=== PATIENT | male | born 1940 | race Caucasian/White ===

== ENCOUNTER 2020-06-07 07:11 | Day surgery (SDC) | payer OTHER ==
--- NOTE | 2020-06-05 10:07 | RAD REPORT ---
EXAM DESCRIPTION: RAD - Chest Pa And Lat (2 Views) - 06/05/2020 9:51 am CLINICAL HISTORY: preop, pending umbilical hernia repair COMPARISON: CT imaging December 2016 TECHNIQUE: Frontal and lateral views of the chest were obtained. FINDINGS: The lungs are clear of an acute process. Interstitial pattern overall has not changed. Pat ient has pleural and parenchymal scarring changes in the right base that are not clearly different fr om the 2017 CT study. Heart size is normal and central vasculature is within normal limits. No pleural effusion or pneu mothorax seen. No acute bony finding noted. No aortic abnormality. 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 No acute chest finding.
[2020-06-05 10:09] LABS: Absolute Lymphocytes (CBC) 2.1 K/uL (0.7-4.9); Basophils % 0.9 % (0-1.3); Hematocrit 38.7 % (39.6-49.0); Lymphocytes % 23.9 % (15.3-44.8); MPV 9.4 fL (7.6-11.3); RBC Red Blood Cell Count 6.52 M/uL (4.33-5.43)
[2020-06-05 10:18] LABS: Potassium 3.7 mmol/L (3.5-5.1)
[2020-06-05 11:06] LABS: White Blood Cell Scan OK (OK)
[2020-06-05 11:07] LABS: Anisocytosis 2+; Blood Morphology Comment NOTED (NOT SEEN); Hypochromasia 2+; Platelet Estimate ADEQ; Poikilocytosis SLIGHT
[2020-06-07] MEDS ORDERED: Ringers Lactate 1,000 ML IV ONE (07:48)
[2020-06-07] MEDS ORDERED: ONDANSETRON 4 MG/2 ML VIAL ONE ×2 (08:34→09:12)
[2020-06-07] MEDS ORDERED: FENTANYL CITR 100 MCG/2 ML ONE (08:34)
[2020-06-07] MEDS ORDERED: LIDOCAINE 2% MPF 5 ML VIAL ONE (08:35)
[2020-06-07] MEDS ORDERED: propofoL 200 MG/20 ML VIAL IV ONE (08:35)
[2020-06-07] MEDS: CEFAZOLIN/SWI 1gm 1 GM/10 ML SYR ONE ×2 (08:53→09:01)
[2020-06-07] MEDS ORDERED: KETOROLAC 30 MG/ML INJ ONE (09:11)
[2020-06-07] MEDS ORDERED: dexAMETHasone 10 MG/ML VIAL ONE (09:11)
--- NOTE | 2020-06-07 09:32 | P.BOP ---
Preoperative diagnosis: tender reducible umbilical hernia Postoperative diagnosis: same Primary procedure: Open repair of tender reducible umbilical hernia Estimated blood loss: <10cc Specimen: none Findings: as above Anesthesia: General Complications: None Transferred to: Recovery Room Condition: Good
[2020-06-07 10:08] VITALS: O2SAT 95
[2020-06-07 12:38] VITALS: BP 125/65; TEMP 97
--- NOTE | 2020-06-12 12:01 | OP ---
Date of Procedure: 06/07/2020 Surgeon: Jean Black MD Preoperative Diagnosis: Tender reducible umbilical hernia. Postoperative Diagnosis: Tender reducible umbilical hernia. Procedure: Open repair of tender reducible umbilical hernia. Estimated Blood Loss: Less than 10 mL. Specimen: None. Anesthesia: General plus local. Indications: This is a case of a patient who comes to us with above. Benefits, alternatives, and ri sks of repair of umbilical hernia were fully explained, which include, but not limited to infection, bleeding, damage to adjacent structures, anesthesia complication, recurrence, [place], and even . Th ey also understand this may not relieve any symptoms, he may need one than one surgical intervention, they understood and signed a consent. Procedure In Detail: The patient was brought to the operating room and placed in supine position. A nesthesia was done without complication. Abdominal area was prepped and draped in usual sterile fash ion. A time-out was called. After that, local anesthesia was applied, followed by a curvilinear inc ision in the periumbilical region. Incision was carried down to subcutaneous tissue. We noticed the hernia sac, it was removed from the umbilical skin. Hernia sac was then opened and noticed to have viable reducible omentum. It was reduced after inspection. Hernia sac was removed. Then, the area was closed with a combination of #1 Vicryl and #1 Prolene. Area was closed with 3-0 chromic in the s ubcutaneous tissue and the skin in a subcuticular fashion. Sponge counts and instrument counts were correct. The patient tolerated the procedure well. The patient was sent to Recovery in stable condit ion. Disposition: Home. Activity: As tolerated, no heavy lifting. Plan: Follow up in my office in 1 week. Call for an appointment at [phone]. Keep area dry for 48 hours, then may shower. Keep Steri-Strip intact. Medications: See orders. HM/MODL Voice ID: [id number] Report ID: [id number]
== END 2020-06-07 11:32 | disposition home or self-care (01) ==
LOC: OR 07:11
PROVIDERS: ATTEND Surgery
PROC: 0WQF0ZZ Repair Abdominal Wall, Open Approach (ICD-10-PCS; principal; 2020-06-07 09:30)
DX: K42.9 Umbilical hernia without obstruction or gangrene (principal); I10 Essential (primary) hypertension; K21.9 Gastro-esophageal reflux disease without esophagitis; G20 Parkinson's disease; Z20.822 Contact with and (suspected) exposure to COVID-19
CPT/HCPCS: 85025; 80048; 36415; 88302; 71046; 49585; U0003; J2704; J3010; J1100; J0690; J7120; J2405 ×2

== ENCOUNTER 2020-08-08 16:01 | Emergency (ER) | payer OTHER ==
--- OUTSIDE RECORDS SUMMARY | 2020-08-08 16:04 | XMS REPORT | Continuity of Care Document ---
:1940 Author Organization [facility] t Address [address] [place] [address] Care Team Providers Name Role Phone Josselin Harding PA-C Primary Care Physician Josselin Gonzalez Attending Clinician [phone] AHMED Attending Clinician Unavailable Problems Condition Condition Condition Status Onset Resolution Last Treating Co mments Source Name Details Category Date Date Treatment Clinician Date History of History of Problem Resolve [facility] allergic allergic d ity of rhinitis rhinitis [place] [facility] ans History of History of Problem Resolve Univers gastroesop gastroesop d it y of hageal hageal [place] reflux reflux Physici (GERD) (GERD) ans History of History of Problem Resolve Univers hypertensi hypertensi d it y of on on [place] [facility] History of History of Problem Resolve [facility] thyroid thyroid d ity of disorder disorder [place] [facility] 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 ity of [place] [facility] Pleural Pleural Problem Active Univers effusion effusion ity of [place] [facility] Thyroid Thyroid Problem Active Univers disorder disorder ity of [place] [facility] HTN HTN Problem Active Univers (hypertens (hypertens it y of ion) ion) [place] [facility] 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 ity of with with [place] 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 without without organ or organ or systems systems involvemen involvemen t t High risk High risk Problem Active Uni vers medication medication it y of use use [place] [facility] 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 ity of [place] [facility] ans Allergies, Adverse Reactions, Alerts Allergy Allergy Status Severity Reaction(s) Onset Inactive Treating Comm ents Source Name Type Date Date Clinician Lisinopr Allergy Active Univers il TABS to drug ity of (finding [place] ) Physici ans Enbrel Allergy Active Rash Univers to drug ity of (finding [place] ) Physici ans Family History Family Member Diagnosis Comments Start Date Stop Date Source Unknown Family Family history of Family History University of Member malignant [place] [facility] ns neoplasm Social History Social Habit Start Date Stop Date Quantity Comments Source Sex Ass[birth year] At [birth year] Nikita Chin ethodist 00:00:00 00:00:00 Medications Ordered Filled Start Stop Current Ordering Indication Dosage Frequency Signature Comments Components Source Medication Medication Date Date Medication? Clinician (SIG) Name Name predniSONE predniSONE Yes FAYYAZ 4 QD TAKE 1 Univers 1 MG Oral 1 MG Oral 2-13 AHMED M.D. TABLET BY ity of Tablet Tablet 00:00: MOUTH [place] 00 EVERY DAY Physici ans Hydroxychlo Hydroxychlo Yes FAYYAZ 1.5 QD TAKE 1.5 Univers roquine roquine 2-13 AHMED M.D. TABLET i ty of Sulfate 200 Sulfate 200 00:00: DAILY [place] MG Oral MG Oral 00 Physici Tablet Tablet ans Humira Pen Humira Pen Yes Uni vers 40 MG/0.8ML 40 MG/0.8ML i ty of Subcutaneou Subcutaneou [place] Physici Pen-injecto Pen-injecto a ns r Kit r Kit Hydroxychlo Hydroxychlo Yes U nivers roquine roquine ity of Sulfate 200 Sulfate 200 [place] MG Oral MG Oral Physici Tablet Tablet ans Aspirin 81 Aspirin 81 Yes Uni vers MG TABS MG TABS ity of [place] Physici ans amLODIPine amLODIPine Yes Uni vers Besylate Besylate ity of TABS TABS [place] [facility] ans Levothyroxi Levothyroxi Yes U nivers ne Sodium ne Sodium ity o f 150 MCG 150 MCG [place] Oral Tablet Oral Tablet P hysici ans Pantoprazol Pantoprazol Yes U nivers e Sodium 40 e Sodium 40 i ty of MG Oral MG Oral [place] Tablet Tablet Physici Delayed Delayed ans Release Release Albuterol Albuterol Yes Unive rs AERS AERS ity of [place] Physici ans ZyrTEC ZyrTEC Yes Univers Allergy Allergy ity of CAPS CAPS [place] [facility] ans Vitamin D3 Vitamin D3 Yes Uni vers TABS TABS ity of [place] [facility] ans Carbidopa-L Carbidopa-L Yes U nivers evodopa evodopa ity of 25-100 MG 25-100 MG [place] Oral Tablet Oral Tablet P hysici ans Vital Signs Vital Name Observation Time Observation Value Comments Source Heart Rate 2018-12-18 86 /min [facility] 10:51:00 [place] Physician s BP Systolic 2018-12-18 151 mm[Hg] [facility] 10:51:00 [place] [facility]ician s BP Diastolic 2018-12-18 80 mm[Hg] [facility] 10:51:00 [place] Physician s Height 2018-12-18 73 [in_us] [facility] 10:51:00 [place] [facility]ician s Weight 2018-12-18 250 [lb_av] [facility] 10:51:00 [place] Physician s Body Mass Index 2018-12-18 32.98 kg/m2 [place] [facility] Calculated 10:51:00 [place] Physician s BP Systolic 2018-08-19 122 mm[Hg] Location: [facility] 10:31:00 Position: [place] [facility]ician s Sitting BP Diastolic 2018-08-19 67 mm[Hg] Location: [facility] 10:31:00 Position: [place] [facility]ician s Sitting Heart Rate 2018-08-19 103 /min [facility] 10:31:00 [place] Physician s BP Systolic 2018-01-21 107 mm[Hg] Location: [facility] 09:38:00 Position: [place] Physician s Sitting BP Diastolic 2018-01-21 55 mm[Hg] Location: [facility] 09:38:00 Position: [place] Physician s Sitting Weight 2018-01-21 250 [lb_av] [facility] 09:38:00 [place] [facility]ician s Height 2018-01-21 73 [in_us] [facility] 09:38:00 [place] [facility]ician s Body Mass Index 2018-01-21 32.98 kg/m2 University o f Calculated 09:38:00 [place] [facility] s Heart Rate 2018-01-21 68 /min [facility] 09:38:00 [place] Physician s Procedures Procedure Date / Time Performed Performing Clinician Sourc e [QLH] CBC (INCLUDES 2018-12-18 00:00:00 [facility] DIFF/PLT) Physicians [QL] C-REACTIVE 2018-12-18 00:00:00 [facility] PROTEIN Physicians [QL] CREATININE 2018-12-18 00:00:00 [facility] W/EGFR Physicians [QLH] HEPATIC FUNCTION 2018-12-18 00:00:00 Unive [facility] PANEL Physicians [QLH] SED RATE BY 2018-12-18 00:00:00 [facility] MODIFIED WESTERGREN Physicians [QLH] HEPATIC FUNCTION 2018-08-19 00:00:00 Unive [facility] PANEL Physicians [QLH] CBC (INCLUDES 2018-08-19 00:00:00 [facility] DIFF/PLT) Physicians [QLH] C-REACTIVE 2018-08-19 00:00:00 [facility] PROTEIN Physicians [QLH] SED RATE BY 2018-08-19 00:00:00 [facility] MODIFIED WESTERGREN Physicians [QL] QUANTIFERON(R)-TB 2018-08-19 00:[facility]00 [facility] GOLD Physicians [QL] CBC (INCLUDES 2018-04-22 00:00:00 [facility] DIFF/PLT) Physicians [QLH] C-REACTIVE 2018-04-22 00:00:00 [facility] PROTEIN Physicians [QLH] HEPATIC FUNCTION 2018-04-22 00:00:00 Unive [facility] PANEL Physicians [QLH] CREATININE 2018-04-22 00:00:00 [facility] W/EGFR Physicians [QL] SED RATE BY 2018-04-22 00:00:00 [facility] MODIFIED WESTERGREN Physicians [QL] CBC (INCLUDES 2018-01-21 00:00:00 [facility] DIFF/PLT) Physicians [QLH] HEPATIC FUNCTION 2018-01-21 00:00:00 [facility] PANEL Physicians [QLH] BUN/CREATININE 2018-01-21 00:00:00 [facility] RATIO W/EGFR Physicians [QLH] C-REACTIVE 2018-01-21 00:00:00 [facility] PROTEIN Physicians [QLH] SED RATE BY 2018-01-21 00:00:00 [facility] MODIFIED WESTERGREN Physicians History of Cataract [place] [facility] surgery Physicians History of Esophagus [facility] surgery Physicians History of Shoulder [facility] o [facility] surgery Physicians Plan of Care Planned Activity Planned Date Details Comments Source Future Scheduled 2020-10-08 INFLUENZA VACCINE [facility] 00:00:00 [code = INFLUENZA VACCINE] Diagnostic Test 2019-06-19 [QLH] CBC (INCLUDES [facility] Pending 00:00:00 DIFF/PLT) [code = Physicians [QLH] CBC (INCLUDES DIFF/PLT)] Diagnostic Test 2019-06-19 [QLH] C-REACTIVE [facility] Pending 00:00:00 PROTEIN [code = [QLH] Physic ians C-REACTIVE PROTEIN] Diagnostic Test 2019-06-19 [QLH] CREATININE [facility] Pending 00:00:00 W/EGFR [code = [QLH] Physici ans CREATININE W/EGFR] Diagnostic Test 2019-06-19 [QLH] [facility] Pending 00:00:00 FUNCTION PANEL [code Physici ans = [QLH] HEPATIC FUNCTION PANEL] Diagnostic Test 2019-06-19 [QLH] SED RATE BY [facility] Pending 00:00:00 MODIFIED WESTERGREN Physicia ns [code = [QLH] SED RATE BY MODIFIED WESTERGREN] Diagnostic Test 2018-12-07 [QLH] [facility] Pending 00:00:00 FUNCTION PANEL [code Physici ans = [QLH] HEPATIC FUNCTION PANEL] Diagnostic Test 2018-12-07 [QLH] CBC (INCLUDES [facility] Pending 00:00:00 DIFF/PLT) [code = Physicians [QLH] CBC (INCLUDES DIFF/PLT)] Diagnostic Test 2018-12-07 [QLH] C-REACTIVE [facility] Pending 00:00:00 PROTEIN [code = [QLH] Physic ians C-REACTIVE PROTEIN] Diagnostic Test 2018-12-07 [QLH] SED RATE BY [facility] Pending 00:00:00 MODIFIED WESTERGREN Physicia ns [code = [QLH] SED RATE BY MODIFIED WESTERGREN] Diagnostic Test 2018-12-07 [QL] [facility] Pending 00:00:00 QUANTIFERON(R)-TB Physicians GOLD [code = [QL] QUANTIFERON(R)-TB GOLD] Diagnostic Test 2018-12-07 [QLH] [facility] Pending 00:00:00 FUNCTION PANEL [code Physici ans = [QLH] HEPATIC FUNCTION PANEL] Diagnostic Test 2018-12-07 [QLH] CBC (INCLUDES [facility] Pending 00:00:00 DIFF/PLT) [code = Physicians [QLH] CBC (INCLUDES DIFF/PLT)] Diagnostic Test 2018-12-07 [QLH] C-REACTIVE [facility] Pending 00:00:00 PROTEIN [code = [QLH] Physic ians C-REACTIVE PROTEIN] Diagnostic Test 2018-12-07 [QLH] SED RATE BY [facility] Pending 00:00:00 MODIFIED WESTERGREN Physicia ns [code = [QLH] SED RATE BY MODIFIED WESTERGREN] Diagnostic Test 2018-12-07 [QL] [facility] Pending 00:00:00 QUANTIFERON(R)-TB Physicians GOLD [code = [QL] QUANTIFERON(R)-TB GOLD] Diagnostic Test 2018-12-07 [QLH] HEPATIC [facility] Pending 00:00:00 FUNCTION PANEL [code Physici ans = [QLH] HEPATIC FUNCTION PANEL] Diagnostic Test 2018-12-07 [QLH] CBC ([facility]ES [facility] Pending 00:00:00 DIFF/PLT) [code = Physicians [QLH] CBC (INCLUDES DIFF/PLT)] Diagnostic Test 2018-12-07 [QLH] C-REACTIVE [facility] Pending 00:00:00 PROTEIN [code = [QLH] Physic ians C-REACTIVE PROTEIN] Diagnostic Test 2018-12-07 [QLH] SED RATE BY [facility] Pending 00:00:00 MODIFIED WESTERGREN Physicia ns [code = [QLH] SED RATE BY MODIFIED WESTERGREN] Diagnostic Test 2018-12-07 [QL] [facility] Pending 00:00:00 QUANTIFERON(R)-TB Physicians GOLD [code = [QL] QUANTIFERON(R)-TB GOLD] Future Scheduled 2007 65+ PNEUMOCOCCAL [facility] 00:00:00 VACCINE (1 of 1 - PPSV23) [code = 65+ PNEUMOCOCCAL VACCINE (1 of 1 - PPSV23)] Future Scheduled 1992 SHINGLES VACCINES [facility] 00:00:00 (#1) [code = SHINGLES VACCINES (#1)] Future Scheduled 1960 Hepatitis C screening [facility] 00:00:00 (procedure) [code = 755284360] Future Scheduled 1954 COVID-19 VACCINE (1) [facility] 00:00:00 [code = COVID-19 VACCINE (1)] Encounters Start End Encounter Admission Attending Care Care Encounter Source Date/Time Date/Time Type Type Clinicians Facility Department ID 2020-05-15 2020-05-15 Outpatient Christy Gonzalez [facility] [id number] 00:00:00 00:00:00 Josselin [id number] 2020-03-30 2020-03-30 Outpatient Christy Gonzalez [facility] [id number] 00:00:00 00:00:00 Josselin [id number] 2019-07-07 2019-07-07 AppointTIFFANY [facility] [id number] Univers 14:00:00 14:00:00 t; SHAYAN COVARRUBIAS - Sugar ity [facility] 2018-12-18 2018-12-18 TIFFANY Schmidt [facility] [id number] Univers 11:45:00 11:45:00 t; SHAYAN COVARRUBIAS, - Sugar ity giselle DOWNEY M.D. [facility] 2 [facility] 2018-12-16 2018-12-16 TIFFANY Schmidt [facility] [id number] Univers 10:30:00 10:30:00 t; SHAYAN COVARRUBIAS ity of [place], [facility] 2018-08-19 2018-08-19 TIFFANY [facility] [id number] Univers 11:00:00 11:00:00 t; SHAYAN COVARRUBIAS - Sugar itLita M.D. [facility] 2 [facility]OD [facility] Physici ans 2018-04-22 2018-04-22 TIFFANY Schmidt [facility] [id number] Univers 11:00:00 11:00:00 t; SHAYAN COVARRUBIAS, Orthopedic i ty giselle DOWNEY M.D. [facility] [place] [facility] Trace 2 ans 2018-01-21 2018-01-21 TIFFANY Schmidt [facility] [id number] Univers 10:00:00 10:00:00 t; SHAYAN COVARRUBIAS Orthopedic i ty of [place], M.D. [facility] [place] [facility] Trace 2 ans 2017-12-19 2017-12-19 AppointTIFFANY Echavarria [id number] Univers 15:15:00 15:15:00 t; SHAYAN COVARRUBIAS ity of [place], [facility]. [facility] 2017-09-24 2017-09-24 AppointTIFFANY Echavarria [id number] Univers 11:00:00 11:00:00 t; SHAYAN COVARRUBIAS ity of [place], M.[facility]. [facility] 2017-09-17 2017-09-17 AppointTIFFANY Echavarria [id number] Univers 10:30:00 10:30:00 t; SHAYAN COVARRUBIAS ity of [place], M.[facility]. [facility] 2017-06-18 2017-06-18 AppointTIFFANY Echavarria [id number] Univers 10:30:00 10:30:00 t; SHAYAN COVARRUBIAS ity of [place], M.[facility]. [facility] 2017-04-11 2017-04-11 AppointTIFFANY Echavarria UTP [id number] Univers 11:00:00 11:00:00 t; SHAYAN COVARRUBIAS ity of [place], M.[facility]. [facility] 2017-02-05 2017-02-05 AppointTIFFANY Echavarria [id number] Univers 11:00:00 11:00:00 t; SHAYAN COVARRUBIAS ity of [place], M.[facility]. [facility] 2017-01-01 2017-01-01 AppointTIFFANY Echavarria [id number] Univers 11:30:00 11:30:00 t; SHAYAN COVARRUBIAS ity of [place], M.[facility]. [facility] 2016-12-04 2016-12-04 AppointTIFFANY Echavarria UTP [id number] Univers 11:30:00 11:30:00 t; SHAYAN COVARRUBIAS ity of [place], M.D. [place] M.D. Physici ans 2016-10-18 2016-10-18 Appointmen MEÑOTIFFANY CLARK UTP [id number] Univers 09:30:00 09:30:00 t; SHAYAN COVARRUBIAS ity of [place], M.D. [place] M.D. Physici ans 2016-10-11 2016-10-11 Appointmen TIFFANY COVARRUBIAS UTP [id number] Univers 09:00:00 09:00:00 t; SHAYAN COVARRUBIAS ity of [place], M.D. [place] M.D. Physici ans Results Test Description Test Time Test Comments Results Result Comments Source [QL] CREATININE W/EGFR 2019-10-22 09:51:00 Test Item Value Reference Range Interpretation Comme nts CREATININE (test code = 1.02 mg/dl 0.70-1.18 N For patients >49 years of age, CREATININE) the reference l imitfor Creatinine is a pproximately 13% higher for peop leidentified as -Lea n. eGFR NON-AFR. CROATIAN 71 {ML/MIN/1.7} > OR = 60 N (test code = eGFR NON-AFR. CROATIAN) eGFR 82 {ML/MIN/1.7} > OR = 60 N (test code = eGFR ) [facility] Physicians[QL] HEPATIC FUNCTION [id number] 09:51:00 Test Item Value Reference Range Interpretation Comments PROTEIN, TOTAL (test code = 6.2 g/dl 6.1-8.1 N PROTEIN, TOTAL) ALBUMIN (test code = 3.9 g/dl 3.6-5.1 N ALBUMIN) GLOBULIN (test code = 2.3 {G/DL CALC} 1.9-3.7 N GLOBULIN) ALBUMIN/GLOBULIN RATIO (test 1.7 {CALC} 1.0-2.5 N code = ALBUMIN/GLOBULIN RATIO) BILIRUBIN, DIRECT; Normal 0.2 mg/dl < OR = 0.2 N (test code = 03604-7) BILIRUBIN, INDIRECT; Normal 0.6 {MG/DL HARPAL} 0.2-1.2 N (test code = 1971-1) ALKALINE PHOSPHATASE (test 44 u/l 35-144 N code = ALKALINE PHOSPHATASE) AST; Normal (test code = 14 u/l 10-35 N 1916-6) ALT; Normal (test code = 10 u/l 9-46 N 1742-6) [facility] Physicians[QL] SED RATE BY MODIFIED [id number] 09:51:00 Test Item Value Reference Range Interpretation Comments SED RATE BY MODIFIED WESTERGREN (test 2 mm/h < OR = 20 N code = SED RATE BY MODIFIED WESTERGREN) [facility] Phys[facility][QL] CBC (INCLUDES DIFF/PLT)2019-10-22 09:51:00 Test Item Value Reference Range Interpretation Comments WHITE BLOOD CELL COUNT 9.5 {Thousand/u} 3.8-10.8 N (test code = WHITE BLOOD CELL COUNT) RED BLOOD CELL COUNT (test 6.48 {Million/uL} 4.20-5.80 code = RED BLOOD CELL COUNT) HEMOGLOBIN; Below Low 12.0 g/dl 13.2-17.1 Threshold (test code = 52586-0) HEMATOCRIT; Normal (test 40.2 % 38.5-50.0 N code = 4544-3) MCV; Below Low Threshold 62.0 fL 80.0-100.0 (test code = 787-2) MCHC; Below Low Threshold 29.9 g/dl 32.0-36.0 (test code = 30354-1) RDW; Above High Threshold 17.4 % 11.0-15.0 (test code = 788-0) PLATELET COUNT; Normal 245 {Thousand/u} 140-400 N (test code = 777-3) MPV; Normal (test code = 10.8 fL 7.5-12.5 N 12696-9) ABSOLUTE NEUTROPHILS (test 5130 {cells/uL} 5451-7792 N code = ABSOLUTE NEUTROPHILS) ABSOLUTE LYMPHOCYTES (test 2888 {cells/uL} 850-3900 N code = ABSOLUTE LYMPHOCYTES) ABSOLUTE MONOCYTES (test 950 {cells/uL} 200-950 N code = ABSOLUTE MONOCYTES) ABSOLUTE EOSINOPHILS (test 475 {cells/uL} 15-500 N code = ABSOLUTE EOSINOPHILS) ABSOLUTE BASOPHILS (test 57 {cells/uL} 0-200 N code = ABSOLUTE BASOPHILS) NEUTROPHILS (test code = 54 % N NEUTROPHILS) LYMPHOCYTES (test code = 30.4 % N LYMPHOCYTES) MONOCYTES; Normal (test 10.0 % N code = 32668-7) EOSINOPHILS; Normal (test 5.0 % N code = 01509-3) BASOPHILS; Normal (test 0.6 % N code = 69421-6) [facility][Q] CBC [id number] 09:51:00 Test Item Value Reference Range Interpretation Comments CBC MORPHOLOGY (test See Comment NORMAL N Anisocy tosis 1 code = CBC +Poikilocytosis 1 MORPHOLOGY) +Hypochromasia 1 +Regis cells 1 + [facility][QL] C-REACTIVE [id number] 09:51:00 Test Item Value Reference Range Interpretation Comments C-REACTIVE PROTEIN (test code = 9.1 mg/L <8.0 C-REACTIVE PROTEIN) [facility][Q] QUANTIFERON( R)-TB GOLD PLUS, 1 [id number] 10:56:00 Test Item Value Reference Range Interpretation Comments QUANTIFERON( NEGATIVE NEGATIVE N Negative test r esult. M. R)-TB GOLD tuberculosis co mplex PLUS, 1 TUBE infection unlik sylvia. (test code = QUANTIFERON( R)-TB GOLD PLUS, 1 TUBE) NIL (test code 0.18 {IU/ml} N = NIL) MITOGEN-NIL >10.00 N (test code = MITOGEN-NIL) TB1-NIL (test 0.00 {IU/ml} N code = TB1-NIL) TB2-NIL (test 0.05 {IU/ml} N The Nil tube v alue reflects code = the background TB2-NIL) interferongamma immune response of the patient's blood sample.Th is value has been subtracted from the patient'sdispla yed TB and Mitogen results . Lower than expected result s with the Mitogen tubepre vent false-negative Quantiferon readings bydete cting a patient with a potential immunesuppressi ve condition and/or suboptim al pre-analyticals pecimen handling. The T B1 Antigen tube is coated with theM. tuberculosis-sp ecific antigens design ed to elicitresponses from TB antigen primed CD4+ helperT-lymphoc ytes. The TB2 Antigen tub e is coated with theM. tuberculosis-sp ecific antigens design ed to elicitresponses from TB antigen primed CD4+ helper and CD8+cytotox ic T-lymphocytes. For additional info rmation, please refer [email or web address] ina.Incujector.[employer]/f aq/HCX268(Th is link is lamine howell provided for informational/e ducational purposes only.) [facility]] HEPATIC FUNCTION [id number] 09:00:00 Test Item Value Reference Range Interpretation Comments PROTEIN, TOTAL (test code = 6.4 g/dl 6.1-8.1 N PROTEIN, TOTAL) ALBUMIN (test code = 4.0 g/dl 3.6-5.1 N ALBUMIN) GLOBULIN (test code = 2.4 {G/DL CALC} 1.9-3.7 N GLOBULIN) ALBUMIN/GLOBULIN RATIO (test 1.7 {CALC} 1.0-2.5 N code = ALBUMIN/GLOBULIN RATIO) BILIRUBIN, DIRECT; Normal 0.2 mg/dl < OR = 0.2 N (test code = 82488-6) BILIRUBIN, INDIRECT; Normal 0.7 {MG/DL HARPAL} 0.2-1.2 N (test code = 1971-1) ALKALINE PHSPHATASE (test 48 u/l 40-115 N code = ALKALINE PHSPHATASE) AST; Normal (test code = 15 u/l 10-35 N 1916-6) ALT; Normal (test code = 14 u/l 9-46 N 1742-6) [facility]] SED RATE BY MODIFIED [id number] 09:00:00 Test Item Value Reference Range Interpretation Comments SED RATE BY MODIFIED WESTERGREN (test 2 mm/h < OR = 20 N code = SED RATE BY MODIFIED WESTERGREN) [facility]] CBC (INCLUDES DIFF/PLT)2018-12-11 09:00:00 Test Item Value Reference Range Interpretation Comments WHITE BLOOD CELL COUNT 9.0 {Thousand/u} 3.8-10.8 N (test code = WHITE BLOOD CELL COUNT) RED BLOOD CELL COUNT (test 6.65 {Million/uL} 4.20-5.80 code = RED BLOOD CELL COUNT) HEMAGLOBIN; Below Low 12.7 g/dl 13.2-17.1 Threshold (test code = 35260-6) HEMATOCRIT; Normal (test 41.1 % 38.5-50.0 N code = 4544-3) MCV; Below Low Threshold 61.8 fL 80.0-100.0 (test code = 787-2) MCHC; Below Low Threshold 30.9 g/dl 32.0-36.0 (test code = 09476-8) RDW; Above High Threshold 17.9 % 11.0-15.0 (test code = 788-0) PLATELET COUNT; Normal 205 {Thousand/u} 140-400 N (test code = 777-3) MPV; Normal (test code = 10.7 fL 7.5-12.5 N 78058-1) ABSOLUTE NEUTROPHILS (test 4869 {cells/uL} 8563-5216 N code = ABSOLUTE NEUTROPHILS) ABSOLUTE LYMPHOCYTES (test 2808 {cells/uL} 850-3900 N code = ABSOLUTE LYMPHOCYTES) ABSOLUTE MONOCYTES (test 963 {cells/uL} 200-950 code = ABSOLUTE MONOCYTES) ABSOLUTE EOSINOPHILS (test 279 {cells/uL} 15-500 N code = ABSOLUTE EOSINOPHILS) ABSOLUTE BASOPHILS (test 81 {cells/uL} 0-200 N code = ABSOLUTE BASOPHILS) NEUTROPHILS (test code = 54.1 % N NEUTROPHILS) LYMPHOCYTES (test code = 31.2 % N LYMPHOCYTES) MONOCYTES; Normal (test 10.7 % N code = 62151-1) EOSINOPHILS; Normal (test 3.1 % N code = 16740-7) BASOPHILS; Normal (test 0.9 % N code = 99793-9) [facility][Q] CBC [id number] 09:00:00 Test Item Value Reference Range Interpretation Comments CBC MORPHOLOGY (test See Comment NORMAL N Anisocy tosis 1 code = CBC +Microcytosis 1 MORPHOLOGY) +Poikilocytosis 1 +Basophilic sti ppling 1 +Polychromasi a 1 + [facility][QLH] C-REACTIVE [id number] 09:00:00 Test Item Value Reference Range Interpretation Comments C-REACTIVE PROTEIN (test code = 11.9 mg/L <8.0 C-REACTIVE PROTEIN) [facility][Q] QUANTIFERON( R)-TB GOLD PLUS, 1 [id number] 09:00:00 Test Item Value Reference Range Interpretation Comments QUANTIFERON( NEGATIVE NEGATIVE N Negative test r esult. M. R)-TB GOLD tuberculosis co mplex PLUS, 1 TUBE infection unlik sylvia. (test code = QUANTIFERON( R)-TB GOLD PLUS, 1 TUBE) NIL (test code 0.03 {IU/ml} N = NIL) MITOGEN-NIL >10.00 N (test code = MITOGEN-NIL) TB1-NIL (test 0.00 {IU/ml} N code = TB1-NIL) TB2-NIL (test 0.00 {IU/ml} N The Nil tube v alue reflects code = the background TB2-NIL) interferongamma immune response of the patient's blood sample.Th is value has been subtracted from the patient'sdispla yed TB and Mitogen results . Lower than expected result s with the Mitogen tubepre vent false-negative Quantiferon readings bydete cting a patient with a potential immunesuppressi ve condition and/or suboptim al pre-analyticals pecimen handling. The T B1 Antigen tube is coated with theM. tuberculosis-sp ecific antigens design ed to elicitresponses from TB antigen primed CD4+ helperT-lymphoc ytes. The TB2 Antigen tub e is coated with theM. tuberculosis-sp ecific antigens design ed to elicitresponses from TB antigen primed CD4+ helper and CD8+cytotox ic T-lymphocytes. For additional info rmation, please refer [email or web address] tion.Incujector.[employer]/f aq/[email or web address](Th is link is lamine howell provided for informational/e ducational purposes only.) [facility]] CREATININE [id number] 08:12:00 Test Item Value Reference Range Interpretation Comments CREATININE (test 1.20 mg/dl 0.70-1.18 For patient s >49 years code = CREATININE) of age, t he reference limitfor Creati nine is approximately 1 3% higher for peopleidentifie d as -Lea n. eGFR NON- 58 > OR = 60 CROATIAN (test {ML/MIN/1.7} code = eGFR NON-) eGFR 68 > OR = 60 N CROATIAN (test {ML/MIN/1.7} code = eGFR ) [facility]] HEPATIC FUNCTION [id number] 08:12:00 Test Item Value Reference Range Interpretation Comments PROTEIN, TOTAL (test code = 6.3 g/dl 6.1-8.1 N PROTEIN, TOTAL) ALBUMIN (test code = 4.0 g/dl 3.6-5.1 N ALBUMIN) GLOBULIN (test code = 2.3 {G/DL CALC} 1.9-3.7 N GLOBULIN) ALBUMIN/GLOBULIN RATIO (test 1.7 {CALC} 1.0-2.5 N code = ALBUMIN/GLOBULIN RATIO) BILIRUBIN, DIRECT; Normal 0.2 mg/dl < OR = 0.2 N (test code = 71801-5) BILIRUBIN, INDIRECT; Normal 0.7 {MG/DL HARPAL} 0.2-1.2 N (test code = 1971-1) ALKALINE PHSPHATASE (test 46 u/l 40-115 N code = ALKALINE PHSPHATASE) AST; Normal (test code = 15 u/l 10-35 N 1916-6) ALT; Normal (test code = 18 u/l 9-46 N 1742-6) [facility]] SED RATE BY MODIFIED [id number] 08:12:00 Test Item Value Reference Range Interpretation Comments SED RATE BY MODIFIED WESTERGREN (test 2 mm/h < OR = 20 N code = SED RATE BY MODIFIED WESTERGREN) [facility]] CBC (INCLUDES DIFF/PLT)2018-08-14 08:12:00 Test Item Value Reference Range Interpretation Comments WHITE BLOOD CELL 10.4 3.8-10.8 N COUNT (test code = {Thousand/u} WHITE BLOOD CELL COUNT) RED BLOOD CELL COUNT 6.94 4.20-5.80 (test code = RED {Million/uL} BLOOD CELL COUNT) HEMAGLOBIN; Below 13.0 g/dl 13.2-17.1 Low Threshold (test code = 23159-4) HEMATOCRIT; Normal 41.6 % 38.5-50.0 N (test code = 4544-3) MCV; Below Low 59.9 fL 80.0-100.0 Threshold (test code = 787-2) MCHC; Below Low 31.3 g/dl 32.0-36.0 Threshold (test code = 94285-9) RDW; Above High 19.3 % 11.0-15.0 Threshold (test code = 788-0) PLATELET COUNT; 218 140-400 N Normal (test code = {Thousand/u} 777-3) ABSOLUTE NEUTROPHILS 6032 5652-5119 N (test code = {cells/uL} ABSOLUTE NEUTROPHILS) ABSOLUTE LYMPHOCYTES 2912 850-3900 N (test code = {cells/uL} ABSOLUTE LYMPHOCYTES) ABSOLUTE MONOCYTES 1019 200-950 (test code = {cells/uL} ABSOLUTE MONOCYTES) ABSOLUTE EOSINOPHILS 354 {cells/uL} 15-500 N (test code = ABSOLUTE EOSINOPHILS) ABSOLUTE BASOPHILS 83 {cells/uL} 0-200 N (test code = ABSOLUTE BASOPHILS) NEUTROPHILS (test 58 % N code = NEUTROPHILS) LYMPHOCYTES (test 28.0 % N code = LYMPHOCYTES) MONOCYTES; Normal 9.8 % N (test code = 34210-6) EOSINOPHILS; Normal 3.4 % N (test code = 45466-1) BASOPHILS; Normal 0.8 % N (test code = 62280-2) MPV (test code = TNP TEST(S) NOT 06532-4) PERFORMED: M PV * Test not performed. * Result not calculated mohsen use one or morerequ ired values exceed analytical limi ts. [facility][Q] CBC [id number] 08:12:00 Test Item Value Reference Range Interpretation Comments CBC MORPHOLOGY (test See Comment NORMAL N Anisocy tosis 1 code = CBC +Microcytosis 1 MORPHOLOGY) +Poikilocytosis 1 +Polychromasia 1 + [facility]] C-REACTIVE [id number] 08:12:00 Test Item Value Reference Range Interpretation Comments C-REACTIVE PROTEIN (test code = 5.2 mg/L <8.0 N C-REACTIVE PROTEIN) [facility]] BUN/CREATININE RATIO [id number] 00:00:00 Test Item Value Reference Range Interpretation Comments UREA NITROGEN 17 mg/dl 7-25 N (BUN) (test code = UREA NITROGEN (BUN)) CREATININE (test 1.16 mg/dl 0.70-1.18 N For patient s >49 years code = of age, the ref erence CREATININE) limitfor Creati nine is approximately 1 3% higher for peopleidentifie d as -Lea n. eGFR NON- 61 {ML/MIN/1.7} > OR = 60 N CROATIAN (test code = eGFR NON-) eGFR 71 {ML/MIN/1.7} > OR = 60 N CROATIAN (test code = eGFR ) BUN/CREATININE NOT APPLICABLE 6-22 RATIO (test code = BUN/CREATININE RATIO) [facility]] HEPATIC FUNCTION [id number] 00:00:00 Test Item Value Reference Range Interpretation Comments PROTEIN, TOTAL (test code = 6.4 g/dl 6.1-8.1 N PROTEIN, TOTAL) ALBUMIN (test code = 4.2 g/dl 3.6-5.1 N ALBUMIN) GLOBULIN (test code = 2.2 {G/DL CALC} 1.9-3.7 N GLOBULIN) ALBUMIN/GLOBULIN RATIO (test 1.9 {CALC} 1.0-2.5 N code = ALBUMIN/GLOBULIN RATIO) BILIRUBIN, DIRECT; Normal 0.2 mg/dl < OR = 0.2 N (test code = 03381-5) BILIRUBIN, INDIRECT; Normal 0.6 {MG/DL HARPAL} 0.2-1.2 N (test code = 1971-1) ALKALINE PHSPHATASE (test 46 u/l 40-115 N code = ALKALINE PHSPHATASE) AST; Normal (test code = 16 u/l 10-35 N 1916-6) ALT; Normal (test code = 18 u/l 9-46 N 1742-6) [facility]] SED RATE BY MODIFIED [id number] 00:00:00 Test Item Value Reference Range Interpretation Comments SED RATE BY MODIFIED JOSÉ MIGUELERGREN (test 2 mm/h < OR = 20 N code = SED RATE BY MODIFIED JOSÉ MIGUELERGREN) [facility]] CBC (INCLUDES DIFF/PLT)2018-04-17 00:00:00 Test Item Value Reference Interpretation Comments Range WHITE BLOOD CELL 9.6 3.8-10.8 N COUNT (test code {Thousand/u} = WHITE BLOOD CELL COUNT) RED BLOOD CELL 6.49 4.20-5.80 COUNT (test code {Million/uL} = RED BLOOD CELL COUNT) HEMAGLOBIN; Below 12.0 g/dl 13.2-17.1 Low Threshold (test code = 51022-9) HEMATOCRIT; Below 38.2 % 38.5-50.0 Low Threshold (test code = 4544-3) MCV; Below Low 58.9 fL 80.0-100.0 Threshold (test code = 787-2) MCHC; Below Low 31.4 g/dl 32.0-36.0 Threshold (test code = 38144-5) RDW; Above High 18.2 % 11.0-15.0 Threshold (test code = 788-0) PLATELET COUNT; 183 140-400 N Review of th e peripheral Normal (test code {Thousand/u} smear reve alsadequate = 777-3) numbers of plat elets. ABSOLUTE 5069 8038-4221 N NEUTROPHILS (test {cells/uL} code = ABSOLUTE NEUTROPHILS) ABSOLUTE 3024 850-3900 N LYMPHOCYTES (test {cells/uL} code = ABSOLUTE LYMPHOCYTES) ABSOLUTE 1094 200-950 MONOCYTES (test {cells/uL} code = ABSOLUTE MONOCYTES) ABSOLUTE 346 15-500 N EOSINOPHILS (test {cells/uL} code = ABSOLUTE EOSINOPHILS) ABSOLUTE 67 0-200 N BASOPHILS (test {cells/uL} code = ABSOLUTE BASOPHILS) NEUTROPHILS (test 52.8 % N code = NEUTROPHILS) LYMPHOCYTES (test 31.5 % N code = LYMPHOCYTES) MONOCYTES; Normal 11.4 % N (test code = 52032-1) EOSINOPHILS; 3.6 % N Normal (test code = 79009-0) BASOPHILS; Normal 0.7 % N (test code = 43272-8) COMMENT(S) (test See Comment Microcytosi s 1 code = +Anisocytosis 1 COMMENT(S)) +Elliptocytes 1 +Tear-drop cells 1 + The s mear was manually review ed and the instrumentdiffe rential results have be en confirmed.The i nstrument differential wolf s been reported. MPV (test code = TNP TEST(S) NOT PERFORMED: 31877-5) MPV * Test not perfor med. * Res ult not calcula frankie because one or morerequ ired values exceed analytic al limits. [facility]] C-REACTIVE [id number] 00:00:00 Test Item Value Reference Range Interpretation Comments C-REACTIVE PROTEIN (test code = 7.3 mg/L <8.0 N C-REACTIVE PROTEIN) [facility]
--- NOTE | 2020-08-08 17:32 | ER ---
Nurse's Notes [facility] Name: Carlos Rodriguez Age: 80 yrs Sex: Male : 1940 Arrival Date: 08/08/2020 Time: 16:03 Bed Waiting Private MD: Diagnosis: ED Course: 08/08 16:03 Patient arrived in ED. ds1 Administered Medications: No medications were administered Outcome: 17:31 Patient left the ED. disha Signatures: Giselle Kruse1 Vinnie Iraheta RN RN [id number]
== END 2020-08-08 17:31 | disposition left against medical advice (07) ==
LOC: ER 16:01
DX: R69 Illness, unspecified (principal); Z53.21 Procedure and treatment not carried out due to patient leaving prior to being seen by health care provider